=== PATIENT | male | born 1955 | race Caucasian/White ===

== ENCOUNTER 2022-10-25 09:03 | Emergency (ER) | payer MEDICARE, SELFPAY ==
[2022-10-25 09:12] VITALS: BP 179/113; PULSE 75; RESP 16; TEMP 36.7; O2SAT 97; BMI 33.5
--- NOTE | 2022-10-25 09:21 | ECG_ITS ---
[facility] Test Date: 2022-10-25 Pat Name: Jose Luther Department: Room: Gender: Male Record Tester: : 1955 Requested By: Dar Ramirez Order Number: [id number] Familia MD: Erasto Mao M.D. Measurements Intervals [place] Rate: 80 P: 40 WV: 172 QRS: -13 QRSD: 160 T: 163 QT: 390 QTc: 452 Interpretive Statements SINUS RHYTHM WITH SINUS ARRHYTHMIA LEFT BUNDLE BRANCH BLOCK [120+ ms QRS DURATION, 80+ ms Q/S IN V1/V2, 85+ ms R IN I/aVL/V5/V6] No previous ECG available for comparison Electronically Signed On 10-25-2022 9:45:37 CDT by Erasto Mao M.D. [id number]
--- NOTE | 2022-10-25 09:30 | ED_ITS ---
HPI - Recheck/Abnormal Lab/Rx General: Chief Complaint: Recheck/Abnormal Lab/Rx Stated Complaint: med check Time Seen by Provider: 10/25/22 09:04 Source: patient Mode of arrival: ambulatory History of Present Illness: 67-year-old male presents emergency room has been out of his blood pressure medicines for last 4 days he usually takes carvedilol he was previously on lisinopril he stopped that because of episodes of hypotension. He is traveling through the area going back from [place] to [facility] where he lives he ran out of his medicines 4 days ago. No headache no vision changes no focal neurologic deficits. Review of Systems Const: Denies: fever(s), chills, body aches, change in appetite, fatigue or malaise ENMT: Denies: throat pain, ear or mastoid pain, nasal discharge or nasal congestion Card: Denies: chest pain, edema, dyspnea on exertion or orthopnea Resp: Denies: dyspnea, productive cough or non-productive cough GI: Denies: abdominal pain, nausea, vomiting, hematemesis, coffee ground emesis, diarrhea, constipation, bloating, hematochezia or melena : Denies: flank pain, dysuria, urinary frequency or urinary urgency Skin/Breast: Denies: rash or pruritus PFSH ED PFSH: Medical History (Updated 10/25/22 @ 10:41 by Dar Liz DO) Hypertension Physical Exam Const: COMMON NORMALS: no acute distress GENERAL APPEARANCE: cooperative and comfortable ORIENTATION/CONSCIOUSNESS: Yes awake, Yes oriented to person, Yes oriented to place and Yes oriented to time HENMT: COMMON NORMALS: normocephalic, atraumatic and hearing grossly normal bilaterally HEAD & SCALP: normocephalic and atraumatic Resp: COMMON NORMALS: normal respiratory effort, No retractions, No use of accessory muscles and clear to auscultation bilaterally AUSCULTATION: clear to auscultation bilaterally Cardio: COMMON NORMALS: regular rate, regular rhythm and No murmurs present (Cardio) RATE: regular rate RHYTHM: regular rhythm GI: COMMON NORMALS: Soft to palpation and No hepatosplenomegaly present AUSCULTATION: Yes normoactive bowel sounds PALPATION: Yes Soft to palpation, No Tenderness to palpation present (GI), No Guarding due to palpation present (GI) and Yes No hepatosplenomegaly present Extremity: COMMON NORMALS: normal to inspection, capillary refill normal, no clubbing, cyanosis or edema, no calf tenderness and no pedal edema Neuro: SENSORIUM/ORIENTATION: Yes oriented to person, Yes oriented to place and Yes oriented to time Skin: COMMON NORMALS: no rashes or lesions noted GENERAL SKIN EXAM: no rashes or lesions noted Course Vital Signs: Vital signs: Vital Signs Temperature 98.0 F 10/25/22 09:12 Pulse Rate 75 10/25/22 09:12 Respiratory Rate 16 10/25/22 09:12 Blood Pressure 179/113 10/25/22 09:12 Pulse Oximetry 97 10/25/22 09:12 Oxygen Delivery Me thod Room Air 10/25/22 09:12 MDM - Recheck/Abnormal Lab/Rx Medical Decision Making Refill carvedilol and warfarin. Take first dose of carvedilol tonight recheck with primary care when you return to home. Medical Records I reviewed the patient's medical records. Lab Data I reviewed the patient's lab results. 10/25/22 09:42 10/25/22 09:42 Laboratory Results WBC 5.49 10^3/uL (3.29-11.43) 10/25/22 09:42 RBC 5.01 10^6/uL (3.85-5.65) 10/25/22 09:42 Hgb 15.50 g/dL (11.27-16.99) 10/25/22 09:42 Hct 46.0 % (37-53) 10/25/22 09:42 MCV 91.8 fl (82-101) 10/25/22 09:42 MCH 30.9 pg (27-33) 10/25/22 09:42 MCHC 33.7 g/dL (30-55) 10/25/22 09:42 RDW 13.3 % (12.1-15.1) 10/25/22 09:42 Plt Count 216 10^3/cmm (157-399) 10/25/22 09:42 MPV 11.0 fL (7.4-10.4) H 10/25/22 09:42 Neut % (Auto) 72.8 % 10/25/22 09:42 Lymph % (Auto) 12.8 % 10/25/22 09:42 [place] % (Auto) 8.9 % 10/25/22 09:42 Eos % (Auto) 4.4 % 10/25/22 09:42 Baso % (Auto) 0.9 % 10/25/22 09:42 Neut # (Auto) 4.00 10^3/uL (1.8-7.7) 10/25/22 09:42 Lymph # (Auto) 0.7 10^3/uL (0.8-4.8) L 10/25/22 09:42 [place] # (Auto) 0.5 10^3/uL (0.2-0.9) 10/25/22 09:42 Eos # (Auto) 0.2 10^3/uL (0.0-0.8) 10/25/22 09:42 Baso # (Auto) 0.1 10^3/uL (0.0-0.1) 10/25/22 09:42 Nucleated RBC % (auto) 0 % 10/25/22 09:42 Nucleated RBCs # 0.0 /100WBC 10/25/22 09:42 Sodium 137 mmol/L (136-145) 10/25/22 09:42 Potassium 4.3 mmol/L (3.5-5.1) 10/25/22 09:42 Chloride 106 mmol/L (98-107) 10/25/22 09:42 Carbon Dioxide 23 mmol/L (22-29) 10/25/22 09:42 Anion Gap 12.3 (5-19) 10/25/22 09:42 BUN 12 mg/dL (8-23) 10/25/22 09:42 Creatinine 0.7 mg/dL (0.7-1.2) 10/25/22 09:42 GFR Calculation 111.8 mL/min (90-130) 10/25/22 09:42 Glucose 96 mg/dL (65-115) 10/25/22 09:42 Calculated Osmolality 284 mOsm/kg (285-295) L 10/25/22 09:42 Calcium 8.8 mg/dL (8.5-10.5) 10/25/22 09:42 Total Bilirubin 0.5 mg/dL (0.15-1.2) 10/25/22 09:42 AST 24 U/L (0-40) 10/25/22 09:42 ALT 19 U/L (0-41) 10/25/22 09:42 Alkaline Phosphatase 69 U/L (40-130) 10/25/22 09:42 Total Protein 6.7 g/dL (6.6-8.7) 10/25/22 09:42 Albumin 4.1 g/dL (3.5-5.2) 10/25/22 09:42 Globulin 2.6 g/dL (1.3-4.6) 10/25/22 09:42 Discharge Plan Discharge Patient Disposition: Home Clinical Impression: Hypertension Condition: Stable Prescriptions: New carvedilol 12.5 mg tablet 12.5 mg PO BID Qty: 60 0RF Rx Instructions: must administer with a meal/food Jantoven 6 mg tablet 9 mg PO DAILY Qty: 30 0RF No Action carvedilol 25 mg tablet 12.5 mg PO BID Aspir-81 81 mg Tablet,Delayed Release (Dr/Ec) 81 mg PO QAM Jantoven 6 mg tablet 9 mg PO DAILY rosuvastatin 40 mg tablet 40 mg PO QAM Discharge Orders: Discharge ED (Routine); Ordered 10/25/22 Ordered By: Dar Liz Discharge Diet: Usual diet Discharge Activity: Resume usual activity Patient Instructions: Opioid Safety, Pain Management Activity Restrictions/Additional Instructions: You are seen today for elevated blood pressure and refill your medications. You are given several blood pressure medications which worked well to lower your blood pressure does have little later in the emergency room. Recommend you take a dose of carvedilol this evening resume all of your other medications as previously prescribed follow-up with your doctor when you return home. Coding Level of Care Code ED [employer] Super[employer] for Derek Kenny
--- NOTE | 2022-10-25 09:31 | PC.PHAR ---
PT STATES HE TAKES CARE OF HIS OWN MEDICATIONS-PT STATES [place] FROM [place] AND FORGOT TO BRING HIS MEDICATIONS WITH HIM PT STATES HE HASNT HAD HIS MEDICATIONS FOR 4 DAYS-PT STATES HE TAKES COUMADIN 9MG DAILY RX FILLED 08/13/22 90D/S FOR 12MG ON MON AND FRI AND 6MG ALL OTHER DAYS-NOTES ARE MADE IN THE PHARMACY COMMENTS
[2022-10-25] MEDS: hyDRALAzine 20 mg/mL INJ 1 mL 10 MG IVP (09:39)
[2022-10-25] MEDS: amlodipine 10 mg Tablet PO (09:40)
[2022-10-25 09:50] LABS: Basophils # 0.1 10^3/uL (0.0-0.1); Basophils % 0.9 %; Eosinophils # 0.2 10^3/uL (0.0-0.8); Eosinophils % 4.4 %; Lymphocytes # 0.7 10^3/uL (0.8-4.8); Lymphocytes % 12.8 %; Mean Corpuscular HGB Conc 33.7 g/dL (30-55); Mean Corpuscular Hemoglobin 30.9 pg (27-33); Mean Corpuscular Volume 91.8 fl (82-101); Monocytes # 0.5 10^3/uL (0.2-0.9); Monocytes % 8.9 %; Neutrophils % 72.8 %; Nucleated Red Blood Cells % 0 %; Platelet Count 216 10^3/cmm (157-399); Red Blood Count 5.01 10^6/uL (3.85-5.65); Red Cell Distribution Width 13.3 % (12.1-15.1); White Blood Count 5.49 10^3/uL (3.29-11.43)
[2022-10-25 10:09] LABS: Alanine Aminotransferase 19 U/L (0-41); Albumin Level 4.1 g/dL (3.5-5.2); Alkaline Phosphatase 69 U/L (40-130); Blood Urea Nitrogen 12 mg/dL (8-23); Calcium 8.8 mg/dL (8.5-10.5); Carbon Dioxide 23 mmol/L (22-29); Chloride 106 mmol/L (98-107); Creatinine Clr Calc Pharmacy 109.3656; Globulin 2.6 g/dL (1.3-4.6); Glomerular Filtration Rate 111.8 mL/min (90-130); Glucose 96 mg/dL (65-115); Osmolality Calculated 284 mOsm/kg (285-295); Sodium 137 mmol/L (136-145); Total Bilirubin 0.5 mg/dL (0.15-1.2); Total Protein 6.7 g/dL (6.6-8.7)
[2022-10-25 10:16] LABS: Anion Gap 12.3 (5-19); Aspartate Amino Transferase 24 U/L (0-40); Potassium 4.3 mmol/L (3.5-5.1)
== END 2022-10-25 10:55 | disposition home or self-care (01) ==
PROVIDERS: Emergency Provider Family Medicine
DX: Z76.0 Encounter for issue of repeat prescription (principal); I10 Essential (primary) hypertension; Z79.82 Long term (current) use of aspirin; Z79.01 Long term (current) use of anticoagulants
CPT/HCPCS: 80053; 85025; 93005; 96374; 99284; J0360